=== PATIENT | female | born 1990 | race Two or more races ===

== ENCOUNTER 2025-02-11 08:45 | Day surgery (SDC) | payer MEDICAID, SELFPAY ==
[2025-02-10 06:51] VITALS: BMI 24.5
[2025-02-10 07:56] LABS: Collection Type, Urine Clean Catch
[2025-02-10 08:57] LABS: Bilirubin,Urine Negative (Negative); Blood,Urine Negative (Negative); Clarity,Urine Clear (Clear/Hazy); Color,Urine Colorless (Lt Yel-Yel); Glucose, Urine Negative (Negative); Ketones,Urine Negative (Negative); Leukocyte Esterase,Urine Negative (Negative); Nitrite,Urine Negative (Negative); PH,Urine 6.5 (5.0-7.0); Protein,Urine Negative (Neg - Trace); RBC,Urine 2 /hpf (0-3); Specific Gravity,Urine 1.011 (1.001-1.035); Squamous Epithelial Cell,Urine 1 /hpf (0-5); Urobilinogen,Urine Negative mg/dL (0.0-1.0); WBC,Urine < 1 /hpf (0-5)
[2025-02-10 08:58] LABS: Basophils % (Auto) 0 % (0-2.5); Eosinophils # (Auto) 0.2 Thou/mm3 (0.0-0.5); Eosinophils % (Auto) 2 % (0-10); Hematocrit 37.7 % (36.0-46.0); Immature Granulocytes % (Auto) 0 % (0-0); Immature Granulocytes Auto 0.03 Thou/mm3 (0.00-0.00); Lymphocytes # (Auto) 3.8 Thou/mm3 (1.0-4.8); Lymphocytes % (Auto) 38 % (10-50); Mean Corpuscular HGB Conc 34.5 g/dl (31.0-37.0); Mean Corpuscular Hemoglobin 29.1 pg (25.0-35.0); Mean Corpuscular Volume 84 fL (80-100); Monocytes # (Auto) 0.7 Thou/mm3 (0.0-0.8); Monocytes % (Auto) 7 % (0-12); Neutrophils # (Auto) 5.4 Thou/mm3 (1.8-7.7); Neutrophils % (Auto) 53 % (37-80); Nucleated Red Blood Cell % 0 /100 WBC (0); Platelet Count 299 Thou/mm3 (140-440); RDW Standard Deviation 38.7 fL (36.4-46.3); Red Blood Count 4.47 Miln/mm3 (4.00-5.20); White Blood Count 10.1 Thou/mm3 (3.6-11.0)
[2025-02-10 09:11] LABS: Anion Gap 10 (7-16); BUN/Creatinine Ratio 19 Ratio (12-20); Blood Urea Nitrogen 17 mg/dL (9-23); Calcium 8.5 mg/dL (8.3-10.6); Carbon Dioxide 26.3 mMol/L (20.0-31.0); Chloride 104 mMol/L (98-107); Creatinine (Component) 0.9 mg/dL (0.6-1.3); Estimated Creatinine Clearance 72.7 mL/min (>60); Glucose 107 mg/dL (74-106); Osmolality,Calculated 280 (275-295); Potassium 3.6 mMol/L (3.4-5.1); Sodium 140 mMol/L (136-145); eGFR > 60 See Note
[2025-02-10 09:24] LABS: HCG Qualitative,Urine Negative
[2025-02-11] VITALS (7 sets, daily range): BP systolic 106–131; BP diastolic 48–73; PULSE 64–96; RESP 12–20; TEMP 36.3–36.6; O2SAT 97–100; BMI 25.8
[2025-02-11] MEDS: RINGERS LACTATED 1000 ML 1,000 ML 20 ML IV (09:41)
--- NOTE | 2025-02-11 12:22 | ESOP_ITS ---
Operative Note - INSTRUCTOR OF NURSING Procedure Date of procedure: 02/11/25 Procedure Performed: Hysteroscopy and IUD removal Indication: displaced IUD Pre-Op diagnosis: displaced IUD Post-Op diagnosis: displaced IUD Anesthesia type: General Procedure description: After an informed consent patient was placed in a dorsal lithotomy position after receiving general anesthesia in the OR. Bladder was straight catheterized after prepping and draping in the usual sterile fashion. Timeout was done. Pelvic exam revealed normal cervix vagina anteverted uterus no adnexal masses. IUD strings were not seen. Then placing by valved speculum into the vagina, anterior lip of cervix held w ith single-tooth tenaculum, cervical os gradually dilated to 8 mm, could only negotiate up to 5 cm into the cervical canal, then hysteroscope was placed after priming and with normal saline running into the ectocervix and into the cervical canal. IUD string was seen coming through the internal cervical os, hysteroscope could not be negotiated beyond the internal cervical os, then up polyp removing forceps were placed through the hysteroscope and the IUD strings were held and pulled outwards with the jaw of the polyp removing forceps, mild tugging was done and gradually the lower part of the IUD and then the bent arms of the IUD were removed ,the entire IUD was removed. Attempts to negotiate the internal cervical os were unsuccessful, no bleeding was observed. Procedure then completed. Instrument and sponge count correct. Patient sent to recovery in stable condition. Patient has a tight internal cervical os, and placement of IUD in future may not be the best, option for her. Her partner was given that information. Specimen: other (IUD gross only ) Estimated blood loss (ml): 10 Findings: see procedure Complications: none Narrative: see procedure /deficit is 240 cc Surgical staff Operation Date: 02/11/25 11:15 <No data on this case meets the specified criteria> Diagnosis Problem List Completed Was Problem List Reviewed/Reconciled?: Yes
--- NOTE | 2025-02-11 12:24 | SUR.PHASEI ---
pt received from OR in recovery bay 4. pt obtunded, breathing unlabored on oxymask 6l, oral airway in place. v/s stable. pt dressing peripad cdi. report received from Paulino BERGMAN and Camilla CALDERÓN.
--- NOTE | 2025-02-11 13:13 | SUR.PHASEII ---
pt able to tolerate oral fluids without difficulty swallowing or nausea/vomiting.
--- NOTE | 2025-02-11 13:23 | SUR.PHASEII ---
pt awake and alert, breathing unlabored on room air. v/s stable. pt dressing peripad cdi. pt able to ambulate to wheelchair with steady gait. d/c instructions given with Jose in room, all questions answered. pt d/c via wheelchair with all belongings.
== END 2025-02-11 13:23 | disposition home or self-care (01) ==
PROVIDERS: PCP Nurse Practitioner Primary Care; Referring Provider Obstetrics & Gynecology; Visit Provider Obstetrics & Gynecology
PROC: 0UJD8ZZ Inspection of Uterus and Cervix, Via Natural or Artificial Opening Endoscopic (ICD-10-PCS; CPT 58555; principal; 2025-02-11 11:00)
PROC: (CPT 58301; 2025-02-11 11:00)
DX: T83.32XA Displacement of intrauterine contraceptive device, initial encounter (principal)
CPT/HCPCS: 58562; 36415; 80048; 81001; 81025; 85025; A4217; A4649; J0131; J0690; J1100; J2250; J2405; J2704; J3010; J3490; J7120